=== PATIENT | male | born 1935 | race Caucasian/White ===

== ENCOUNTER 2022-04-13 08:15 | Day surgery (SDC) | payer MEDICARE, BC, SELFPAY ==
[2022-04-13] MEDS: TETRACAINE 0.5% OPHTH 1 DROP EYE-LEFT ×2 (08:25→08:41)
--- NOTE | 2022-04-13 08:30 | SUR.PREOP ---
The eye drops brought by the patient (Ketorolac and Prednisolone) are examined and I have determined they are labeled by the patient's pharmacy for this patient as prescribed by the surgeon. The bottles are intact, recently obtained and appear to be correct.
[2022-04-13] MEDS: KETOROLAC OPHTH 0.5% 1 DROP EYE-LEFT ×3 (08:37→08:53)
[2022-04-13 08:39] VITALS: BMI 30.4
[2022-04-13 08:42] VITALS: BP 151/82; PULSE 57; RESP 20; TEMP 36.8; O2SAT 97
[2022-04-13] MEDS: BALANCED SALT IRRIG SOLN 15 ML EYE-LEFT (10:10)
[2022-04-13] MEDS: TETRACAINE 0.5% OPHTH 2 DROP EYE-LEFT (10:11)
--- NOTE | 2022-04-13 10:34 | W.ANESCHARGE ---
Anesthesia Charges Start Date/Time Anesthesia Start Date: 04/13/22 Anesthesia Start Time: 09:49 Stop Date/Time Anesthesia Stop Date: 04/13/22 Anesthesia Stop Time: 10:33 Summary Emergency: No Extremes of Age: Over 72-CPT 72386
[2022-04-13 10:35] VITALS: BP 146/79; PULSE 51; RESP 18; O2SAT 98
--- NOTE | 2022-04-13 12:07 | W.ANESCHARGE ---
Anesthesia Charges Start Date/Time Anesthesia Start Date: 04/13/22 Anesthesia Start Time: 09:49 Stop Date/Time Anesthesia Stop Date: 04/13/22 Anesthesia Stop Time: 10:33 Summary Emergency: No Extremes of Age: Over 72-CPT 93208
--- NOTE | 2022-04-13 12:26 | P.PCN_ITS ---
Procedure Note Will [facility] bill your pro fee for this procedure?: Yes Procedure Description: SURGEON: Robyn Ngo MD PREOPERATIVE DIAGNOSIS: 1. Nuclear sclerotic cataract, left eye. 2. Miosis, left eye. POSTOPERATIVE DIAGNOSIS: 1. Nuclear sclerotic cataract, left eye. 2. Miosis, left eye. NAME OF OPERATION: Phacoemulsification of cataract with posterior chamber intraocular lens implantation in the left eye with pupilloplasty. ANESTHESIA: Topical. ESTIMATED BLOOD LOSS: Less than 2 cc. COMPLICATIONS: None. PATHOLOGY SPECIMEN: None. INDICATIONS: See consult note for details. The risks, benefits and alternatives of the procedure were explained to the patient, who elected to proceed and signed informed consent to do so. PROCEDURE: The patient was brought to the pre-holding area where the left eye was identified as the operative eye. I placed my initials above this eye. The patient received eye drops consisting of 0.5% tetracaine, 1% tropicamide, 10% phenylephrine, and 0.5% ketorolac. The patient was then brought to the operating room where the left eye was again identified as the operative eye. The eye was prepped with Betadine and draped in the usual sterile ophthalmic fashion. A #15 super-sharp blade was used to create a paracentesis site. 1% non-preserved intracameral lidocaine was injected into the anterior chamber. Endocoat was injected into the anterior chamber. A 2.4 mm keratome was used to create a three-plane self-sealing incision 1 mm anterior to the temporal limbus. A #15 super-sharp blade was used to create four additional paracentesis sites. Four Grieshaber iris hooks were placed in order to stretch the iris. A cystotome was used to create an anterior capsular leaflet. The Utrata forceps were used to extend this to form a continuous curvilinear capsulorrhexis. Hydrodissection was performed. The cataract was removed with phacoemulsification using the [id number] technique. The irrigation and aspiration tip was used to remove the remaining cortex. Healon was injected into the capsular bag. An GISSELLE ZCB00 intraocular lens of 18.0 diopters was injected into the capsular bag. The four Grieshaber iris hooks were removed. The irrigation and aspiration tip was used to remove the remaining viscoelastic. Miostat was injected into the anterior chamber. Balanced salt solution on a cannula was used to hydrate the wound, and the wound was found to be watertight. The pupil was noted to be round. DISPOSITION: The patient was taken to the recovery room and discharged to home in stable condition. The patient was instructed to call me or go to the emergency department with any sudden change, including dramatic loss of vision, severe pain in the eye or eyebrow region, nausea, or vomiting. The patient will follow up in the clinic tomorrow morning. Surgeon: Robyn Ngo MD
== END 2022-04-13 11:05 | disposition home or self-care (01) ==
PROVIDERS: PCP Family Medicine; Visit Provider Ophthalmology
PROC: (CPT 66982; principal; 2022-04-13 08:15)
DX: H25.12 Age-related nuclear cataract, left eye (principal); H57.03 Miosis
CPT/HCPCS: 66982; 142; 99100; A9270; J2250; J3010; V2632

== ENCOUNTER 2022-04-27 06:48 | Day surgery (SDC) | payer MEDICARE, BC, SELFPAY ==
[2022-04-27] MEDS: TETRACAINE 0.5% OPHTH 1 DROP EYE-RIGHT ×2 (07:00→07:05)
[2022-04-27] MEDS: KETOROLAC OPHTH 0.5% 1 DROP EYE-RIGHT ×3 (07:00→07:10)
[2022-04-27] MEDS: SODIUM CHLORIDE 0.9 % (FLUSH) 10 ML SYRINGE IVF (07:15)
[2022-04-27 07:16] VITALS: BP 132/73; PULSE 58; RESP 20; TEMP 36.6; O2SAT 97
[2022-04-27 07:21] VITALS: BMI 30.5
[2022-04-27] MEDS: BALANCED SALT IRRIG SOLN 15 ML EYE-RIGHT (07:38)
[2022-04-27] MEDS: TETRACAINE 0.5% OPHTH 2 DROP EYE-RIGHT (07:38)
--- NOTE | 2022-04-27 08:47 | W.ANESCHARGE ---
Anesthesia Charges Start Date/Time Anesthesia Start Date: 04/27/22 Anesthesia Start Time: 08:07 Stop Date/Time Anesthesia Stop Date: 04/27/22 Anesthesia Stop Time: 08:47 Summary Emergency: No Extremes of Age: Over 72-CPT 28544
[2022-04-27 08:51] VITALS: BP 131/64; PULSE 50; RESP 16; TEMP 36.2; O2SAT 94
--- NOTE | 2022-04-27 08:56 | SUR.PREOP ---
0655The eye drops brought by the patient (Ketorolac and Prednisolone) are examined and I have determined they are labeled by the patient's pharmacy for this patient as prescribed by the surgeon. The bottles are intact, recently obtained and appear to be correct.
--- NOTE | 2022-04-27 09:06 | W.ANESCHARGE ---
Anesthesia Charges Start Date/Time Anesthesia Start Date: 04/27/22 Anesthesia Start Time: 08:07 Stop Date/Time Anesthesia Stop Date: 04/27/22 Anesthesia Stop Time: 08:47 Summary Emergency: No Extremes of Age: Over 72-CPT 47053
--- NOTE | 2022-04-27 09:40 | P.PCN_ITS ---
Procedure Note Date Seen: 04/27/22 Will [facility] bill your pro fee for this procedure?: Yes Procedure Description: SURGEON: Robyn Ngo MD PREOPERATIVE DIAGNOSIS: 1. Nuclear sclerotic cataract, right eye. 2. Miosis, right eye. POSTOPERATIVE DIAGNOSIS: 1. Nuclear sclerotic cataract, right eye. 2. Miosis, right eye. NAME OF OPERATION: Phacoemulsification of cataract with posterior chamber intraocular lens implantation in the right eye with pupilloplasty. ANESTHESIA: Topical. ESTIMATED BLOOD LOSS: Less than 2 cc. COMPLICATIONS: None. PATHOLOGY SPECIMEN: None. INDICATIONS: See consult note for details. The risks, benefits and alternatives of the procedure were explained to the patient, who elected to proceed and signed informed consent to do so. PROCEDURE: The patient was brought to the pre-holding area where the right eye was identified as the operative eye. I placed my initials above this eye. The patient received eye drops consisting of 0.5% tetracaine, 1% tropicamide, 10% phenylephrine, and 0.5% ketorolac. The patient was then brought to the operating room where the right eye was again identified as the operative eye. The eye was prepped with Betadine and draped in the usual sterile ophthalmic fashion. A #15 super-sharp blade was used to create a paracentesis site. 1% non-preserved intracameral lidocaine was injected into the anterior chamber. Endocoat was injected into the anterior chamber. A 2.4 mm keratome was used to create a three-plane self-sealing incision 1 mm anterior to the temporal limbus. A #15 super-sharp blade was used to create four additional paracentesis sites. Four Grieshaber iris hooks were placed in order to stretch the iris. A cystotome was used to create an anterior capsular leaflet. The Utrata forceps were used to extend this to form a continuous curvilinear capsulorrhexis. Hydrodissection was performed. The cataract was removed with phacoemulsification using the [id number] technique. The irrigation and aspiration tip was used to remove the remaining cortex. Healon was injected into the capsular bag. An GISSELLE ZCB00 intraocular lens of 18.0 diopters was injected into the capsular bag. The four Grieshaber iris hooks were removed. The irrigation and aspiration tip was used to remove the remaining viscoelastic. Miostat was injected into the anterior chamber. Balanced salt solution on a cannula was used to hydrate the wound, and the wound was found to be watertight. The pupil was noted to be round. DISPOSITION: The patient was taken to the recovery room and discharged to home in stable condition. The patient was instructed to call me or go to the emergency department with any sudden change, including dramatic loss of vision, severe pain in the eye or eyebrow region, nausea, or vomiting. The patient will follow up in the clinic tomorrow morning. Surgeon: Robyn Ngo MD
== END 2022-04-27 09:26 | disposition home or self-care (01) ==
PROVIDERS: PCP Family Medicine; Visit Provider Ophthalmology
PROC: (CPT 66982; principal; 2022-04-27 06:45)
DX: H25.11 Age-related nuclear cataract, right eye (principal); H57.03 Miosis
CPT/HCPCS: 66982; 00142; 99100; A9270; J2250; J3010; V2632